=== PATIENT | female | born 1940 | race Hispanic/Latino ===

== ENCOUNTER 2016-09-07 09:43 | Outpatient (CLI) | payer MEDICARE ==
[2016-09-07 10:40] LABS: Blood Urea Nitrogen 29 mg/dL (7-17)
[2016-09-07] MEDS ORDERED: NACL ONE (10:40)
--- NOTE | 2016-09-07 11:14 | Cat Scan Report ---
CTA CHEST INDICATION: Prothrombin gene mutation. COMPARISON: 08/26/2012 FINDINGS: Chest CTA performed following intravenous administration of 100 cc of Omnipaque 350. Rotational MIP's also obtained. Mild cardiomegaly. No aortic aneurysm or dissection. No suspicious pulmonary arterial filling defects. Borderline pulmonary arterial hypertension. No effusions or size significant adenopathy. Patent central airway. Thyroid heterogeneity with few bilateral hypodensities and approximately 2.7 cm heterogeneous mass off the left lower thyroid pole with intrinsic calcifications again noted. Mild left lower lung scarring/atelectasis. Slight nonspecific distal esophageal prominence. Mild contrast reflux into the suprahepatic IVC. Cholecystectomy clips. Slight nonspecific bilateral perinephric stranding. Multilevel spinal degenerative changes, including predominantly right-sided thoracic spine osteophytes and disc degeneration. Possible osteopenia. CONCLUSION: No acute chest CT abnormality or significant interval change, as described. Thank you for the opportunity to participate in this patient's care.
== END 2016-09-07 09:44 | disposition home or self-care (01) ==
LOC: CT 09:43
PROVIDERS: ATTEND Internal Medicine Hematology & Oncology
DX: D68.52 Prothrombin gene mutation (principal); I51.7 Cardiomegaly; J98.11 Atelectasis; E07.89 Other specified disorders of thyroid; M47.899 Other spondylosis, site unspecified; M25.78 Osteophyte, vertebrae; M51.34 Other intervertebral disc degeneration, thoracic region; Z90.49 Acquired absence of other specified parts of digestive tract
CPT/HCPCS: 36415; 71275; 82565; 84520; Q9967

== ENCOUNTER 2017-09-07 14:52 | Outpatient (CLI) | payer MEDICARE ==
--- NOTE | 2017-09-13 10:50 | Vascular Lab Report ---
LOWER EXTREMITY VENOUS DUPLEX: REASON FOR EXAM: Pain and swelling of the lower extremities. COMMENTS ON THE RIGHT: Partially occluding acute thrombus is seen in the mid superficial femoral vein extending into the popliteal vein. The remaining veins visualized are freely compressible without evidence of internal echogenicity. Spontaneous and phasic flow is present proximally. COMMENTS ON THE LEFT: All veins visualized are freely compressible without evidence of internal echogenicity. Flow is spontaneous and phasic throughout. A soft tissue change in the left knee area is consistent with a Navarrete's cyst. IMPRESSION: Acute, partially occluding thrombus involving the mid superficial femoral vein and popliteal veins in the right lower extremity. No evidence of acute deep venous thrombosis in the left lower extremity. A soft tissue change in the left knee area is consistent with a Navarrete's cyst.
== END 2017-09-07 14:53 | disposition home or self-care (01) ==
LOC: VAS 14:52
PROVIDERS: ATTEND Internal Medicine Hematology & Oncology
DX: I82.431 Acute embolism and thrombosis of right popliteal vein (principal); I82.411 Acute embolism and thrombosis of right femoral vein; M79.662 Pain in left lower leg; M79.89 Other specified soft tissue disorders
CPT/HCPCS: 93970

== ENCOUNTER 2017-10-10 11:03 | Outpatient (CLI) | payer MEDICARE ==
--- NOTE | 2017-10-11 12:55 | Vascular Lab Report ---
LOWER EXTREMITY VENOUS DUPLEX: REASON FOR EXAM: Pain and swelling of the lower extremities. COMMENTS ON THE RIGHT: Indeterminate thrombus is seen in the superficial femoral vein extending down into the popliteal vein. This appears to be similar distribution to previous study dated September 09, 2017. The remaining veins visualized are freely compressible without evidence of internal echogenicity. Spontaneous and phasic flow is present proximally. COMMENTS ON THE LEFT: All veins visualized are freely compressible without evidence of internal echogenicity. Flow is spontaneous and phasic throughout. A soft tissue change in the left knee area is consistent with a Navarrete's cyst. IMPRESSION: Indeterminate see venous thrombosis in the right lower extremity involving the superficial femoral and popliteal veins. The extent of thrombus appears to be consistent with previous study dated 09 09 2017. A soft tissue change in the left knee area is consistent with a Navarrete's cyst.
== END 2017-10-10 11:04 | disposition home or self-care (01) ==
LOC: VAS 11:03
PROVIDERS: ATTEND Internal Medicine Hematology & Oncology
DX: I82.411 Acute embolism and thrombosis of right femoral vein (principal); I82.431 Acute embolism and thrombosis of right popliteal vein; I10 Essential (primary) hypertension
CPT/HCPCS: 93970

== ENCOUNTER → 2017-12-27 | Outpatient (CLI) | payer MEDICARE ==
--- NOTE | 2017-12-29 08:45 | Vascular Lab Report ---
LOWER EXTREMITY VENOUS DUPLEX: REASON FOR EXAM: History of deep venous thrombosis. COMMENTS ON THE RIGHT: Partially occluding chronic thrombus is seen throughout the superficial femoral vein. The remaining veins visualized are freely compressible without evidence of internal echogenicity. Spontaneous and phasic flow is present proximally. COMMENTS ON THE LEFT: All veins visualized are freely compressible without evidence of internal echogenicity. Flow is spontaneous and phasic throughout. IMPRESSION: Partially occluding chronic thrombus throughout the right superficial femoral vein. No acute deep venous thrombosis in either lower extremity.
== END | disposition home or self-care (01) ==
LOC: VAS 10:31
PROVIDERS: ATTEND Internal Medicine Hematology & Oncology
DX: I82.511 Chronic embolism and thrombosis of right femoral vein (principal); I10 Essential (primary) hypertension; Z88.0 Allergy status to penicillin; Z90.49 Acquired absence of other specified parts of digestive tract
CPT/HCPCS: 93970